=== PATIENT | male | born 1950 | race Caucasian/White ===

== ENCOUNTER 2016-11-08 15:04 | Emergency (ER) | payer OTHER ==
[2016-11-08 15:26] LABS: BASOPHILS 0.2 % (0.0-2.0); EOSINOPHILS 0.9 % (0-7); HEMATOCRIT 43.3 % (42.0-54.0); HEMOGLOBIN 15.3 g/dL (13.5-17.5); IMMATURE GRANULOCYTES 0.2 % (0-5); LYMPHOCYTES 14.7 % (15-50); MCH 32.4 pg (26.0-34.0); MCHC 35.3 g/dL (31.0-37.0); MCV 91.7 fL (80.0-100.0); MONOCYTES 6.2 % (2-11); NEUTROPHILS 77.8 % (40-80); PLATELET COUNT 165 10x3/uL (130-400); RBC 4.72 10x6/uL (4.20-6.10); RDW 12.1 % (11.5-14.5); WBC 9.8 10x3/uL (4.8-10.8)
[2016-11-08 15:39] LABS: APTT 26.2 SECONDS (22.8-39.4); INR 1.05 (0.85-1.17); PROTIME 13.6 SECONDS (11.6-15.0)
[2016-11-08 15:47] LABS: ALBUMIN 3.9 g/dL (3.4-5.0); ALKALINE PHOSPHATASE 78 U/L (46-116); ALT (SGPT) 22 U/L (10-68); AMYLASE - SERUM 55 U/L (25-115); BILIRUBIN - TOTAL 1.02 mg/dL (0.2-1.3); CALC OSMOLALITY 278 mosm/kg (275-300); CALCIUM 9.4 mg/dL (8.5-10.1); CARBON DIOXIDE 28.9 mmol/L (21.0-32.0); CHLORIDE - SERUM 103 mmol/L (98-107); GLUCOSE 108 mg/dL (74-106); LIPASE 148 U/L (73-393); POTASSIUM - SERUM 3.7 mmol/L (3.5-5.1); PROTEIN - SERUM 7.5 g/dL (6.4-8.2); SODIUM 140 mmol/L (136-145); UREA NITROGEN 9 mg/dL (7-18); eGFR NON AFRICAN AMERICAN 79 mL/min (90-120)
== END 2016-11-08 21:01 | disposition home or self-care (01) ==
LOC: D.ER 15:04
PROVIDERS: Emergency Medicine
DX: K52.89 Other specified noninfective gastroenteritis and colitis (principal); J44.9 Chronic obstructive pulmonary disease, unspecified; I24.9 Acute ischemic heart disease, unspecified; J45.909 Unspecified asthma, uncomplicated; E78.5 Hyperlipidemia, unspecified; I21.4 Non-ST elevation (NSTEMI) myocardial infarction; M06.9 Rheumatoid arthritis, unspecified; F17.200 Nicotine dependence, unspecified, uncomplicated

== ENCOUNTER 2017-06-07 13:33 | Emergency (ER) | payer OTHER | END 2017-06-07 18:28 | disposition left against medical advice (07) | LOC: D.ER 13:33 | DX: H57.12 Ocular pain, left eye (principal) ==

== ENCOUNTER 2017-07-03 02:39 | Emergency (ER) | payer OTHER | END 2017-07-03 03:48 | disposition home or self-care (01) | LOC: D.ER 02:39 | DX: M54.32 Sciatica, left side (principal); J45.909 Unspecified asthma, uncomplicated ==

== ENCOUNTER 2017-07-08 12:47 | Emergency (ER) | payer OTHER | END 2017-07-08 15:22 | disposition home or self-care (01) | LOC: D.ER 12:47 | DX: M54.30 Sciatica, unspecified side (principal); S39.012A Strain of muscle, fascia and tendon of lower back, initial encounter; X58.XXXA Exposure to other specified factors, initial encounter; Y93.89 Activity, other specified; Y92.019 Unspecified place in single-family (private) house as the place of occurrence of the external cause; J45.909 Unspecified asthma, uncomplicated ==

== ENCOUNTER 2017-07-17 14:36 | Emergency (ER) | payer OTHER ==
[2017-07-17 14:59] LABS: BASOPHILS 0.3 % (0-2); EOSINOPHILS 0.5 % (0-7); HEMATOCRIT 43.5 % (42.0-54.0); HEMOGLOBIN 15.2 g/dL (13.5-17.5); IMMATURE GRANULOCYTES 0.1 % (0-5); LYMPHOCYTES 14.5 % (15-50); MCH 31.4 pg (26.0-34.0); MCHC 34.9 g/dL (31.0-37.0); MCV 89.9 fL (80.0-100.0); MEAN PLATELET VOLUME 10.2 fL (7.4-10.4); MONOCYTES 5.9 % (2-11); NEUTROPHILS 78.7 % (40-80); PLATELET COUNT 148 10x3/uL (130-400); RBC 4.84 10x6/uL (4.20-6.10); RDW 12.7 % (11.5-14.5); WBC 7.8 10x3/uL (4.8-10.8)
[2017-07-17 15:23] LABS: ALBUMIN 3.8 g/dL (3.4-5.0); ALKALINE PHOSPHATASE 96 U/L (46-116); ALT (SGPT) 24 U/L (10-68); CALC OSMOLALITY 281 mosm/kg (275-300); CALCIUM 9.8 mg/dL (8.5-10.1); CARBON DIOXIDE 25.9 mmol/L (21.0-32.0); CHLORIDE - SERUM 102 mmol/L (98-107); CHOL - HDL RATIO 2.8 ratio (2.3-4.9); CHOLESTEROL, TOTAL 144 mg/dL (0-200); CKMB 0.6 U/L (0.0-3.6); CREATINE KINASE 83 UL (21-232); GLUCOSE 130 mg/dL (74-106); HDL CHOLESTEROL 52 mg/dL (32-96); LDL CHOLESTEROL 47 mg/dL (0-100); LDL-HDL RATIO 0.9 ratio (1.5-3.5); POTASSIUM - SERUM 3.4 mmol/L (3.5-5.1); PROTEIN - SERUM 7.5 g/dL (6.4-8.2); SODIUM 140 mmol/L (136-145); TRIGLYCERIDE 227 mg/dL (30-200); UREA NITROGEN 15 mg/dL (7-18)
[2017-07-17 15:26] LABS: BILIRUBIN - TOTAL 0.04 mg/dL (0.2-1.3); TROPONIN-I < 0.017 ng/mL (0.000-0.060)
[2017-07-17 15:36] LABS: MAGNESIUM - SERUM 1.8 mg/dL (1.8-2.4)
[2017-07-17 15:59] LABS: eGFR NON AFRICAN AMERICAN 79 mL/min (90-120)
== END 2017-07-17 17:53 | disposition home or self-care (01) ==
LOC: D.ER 14:36
PROVIDERS: Emergency Medicine
DX: R07.9 Chest pain, unspecified (principal); I25.10 Atherosclerotic heart disease of native coronary artery without angina pectoris; E87.6 Hypokalemia; F17.200 Nicotine dependence, unspecified, uncomplicated

== ENCOUNTER 2018-04-25 22:35 | Inpatient (IN) | payer MEDICARE, MEDICAID ==
[~2018-04-25] VITALS: Ht 177.8 cm; Wt 86.4 kg
--- NOTE | ~2018-04-25 | OP ---
PATIENT NAME: RAJWINDER BROOKE MEDICAL RECORD: [id number] :48 LOCATION:D.MS [id number] ADMISSION DATE:04/26/18 SURGEON: CHERIE MARQUEZ MD DATE OF OPERATION: 04/27/2018 PREOPERATIVE DIAGNOSIS: Left intertrochanteric hip fracture. POSTOPERATIVE DIAGNOSIS: Left intertrochanteric hip fracture. PROCEDURE: Gamma nailing for left intertrochanteric hip fracture. SURGEON: Cherie Marquez MD ANESTHESIA: General. INTRAOPERATIVE COMPLICATIONS: None. SUMMARY OF PATHOLOGIC FINDINGS: The patient had an intertrochanteric fracture at the base of the femoral neck on the left consistent with preoperative diagnosis. IMPLANTS USED: WorkingPoint gamma nail system short 125 nail with a 105-mm compression screw and a 35-mm interlocking screw. OPERATIVE SUMMARY IN DETAIL: After obtaining the appropriate preoperative orthopedic surgery consent as well as anesthetic consultation, evaluation and clearance, the patient was brought to the operating room, placed on the operating table in supine position. After adequate general laryngeal mask airway was administered, the patient was placed on the fracture table, right leg was placed in the well leg munson and the left leg was placed in the traction boot. All pressure points were well padded. The patient was held firmly to the fracture table using the belt and strap system. Appropriate reduction maneuvers were performed and then under fluoroscopy, fluoroscopy showed good reduction in both AP and lateral planes. Left hip was prepped and draped in routine sterile fashion. A small incision was made above the tip of the greater trochanter. An awl was used to create a passing hole for the lateral tip of the greater trochanter. A ball-tipped guidewire was then passed on the femur. Proximal reaming was then followed by insertion of the short 125 degree nail to the appropriate depth. The guide pin was placed in the center of the femoral head as seen on AP and lateral planes to the appropriate depth. Reaming was then followed by insertion of the compression screw, which was then compressed and the derotational screw was placed and back turned approximately 2-1/2 times to allow for compression, but not rotation. Lastly, the distal interlocking screw was placed using the guide under fluoroscopic guidance. Final radiographs were taken and submitted for radiologist review. Wounds were irrigated and closed in usual fashion. Sterile dressings were applied. The patient was awakened, taken to recovery room in stable condition. All final needle and sponge counts were correct. TRANSINT:[id number] Voice Confirmation ID: [id number] DOCUMENT ID: [id number] OPERATIVE REPORT [id number] RAJWINDER BROOKE MD, CHERIE NUNEZ at 1150 CC: [id number] DICTATION DATE: 04/27/18 1548 MANAGER BUDGET: 04/27/18 1616 ADM IN [place] [address] [place] [address]
[2018-04-25] MEDS ORDERED: OMEPRAZOLE40 MG PO (22:38)
[2018-04-25] MEDS ORDERED: LISINOPRIL5 MG PO (22:38)
[2018-04-25] MEDS ORDERED: BAYER CHEWABLE81 MG PO (22:38)
[2018-04-25] MEDS ORDERED: LOPRESSOR25 MG PO (22:38)
[2018-04-25] MEDS ORDERED: VITAMIN B-12500 MC1 PO (22:39)
[2018-04-25] MEDS ORDERED: RESTORIL15 MG PO (22:39)
[2018-04-26] VITALS (17 sets, daily range): BP systolic 94–149; BP diastolic 67–91
[2018-04-26 01:01] LABS: BASOPHILS 0.3 % (0-2); EOSINOPHILS 0.5 % (0-7); HEMATOCRIT 40.6 % (42.0-54.0); HEMOGLOBIN 14.1 g/dL (13.5-17.5); IMMATURE GRANULOCYTES 0.8 % (0-5); MCH 31.3 pg (26.0-34.0); MCHC 34.7 g/dL (31.0-37.0); MCV 90.2 fL (80.0-100.0); MEAN PLATELET VOLUME 9.9 fL (7.4-10.4); MONOCYTES 7.5 % (2-11); NEUTROPHILS 81.9 % (40-80); RDW 12.7 % (11.5-14.5); WBC 10.9 10x3/uL (4.8-10.8)
[2018-04-26 01:02] LABS: PLATELET COUNT 182 10x3/uL (130-400)
[2018-04-26 01:07] LABS: INR 1.04 (0.85-1.17); PROTIME 13.2 SECONDS (11.6-15.0)
[2018-04-26 01:11] LABS: ALBUMIN 3.7 g/dL (3.4-5.0); ANION GAP 12.1 mmol/L (8-16); BILIRUBIN - TOTAL 0.33 mg/dL (0.2-1.3); CARBON DIOXIDE 28.9 mmol/L (21.0-32.0); CREATININE - SERUM 1.3 mg/dL (0.6-1.3); PROTEIN - SERUM 7.2 g/dL (6.4-8.2)
[2018-04-26 08:26] LABS: CKMB 1.1 U/L (0.0-3.6)
[2018-04-26] MEDS ORDERED: METOPROLOL TART25 MG PO (19:16)
[2018-04-27 01:28] VITALS: BP 94/67; BMI 27.3
[2018-04-27 04:26] VITALS: BP 98/68
[2018-04-27 06:29] LABS: BASOPHILS 0.5 % (0-2); EOSINOPHILS 3.1 % (0-7); HEMATOCRIT 41.7 % (42.0-54.0); HEMOGLOBIN 14.1 g/dL (13.5-17.5); IMMATURE GRANULOCYTES 0.8 % (0-5); LYMPHOCYTES 13.4 % (15-50); MCH 31.2 pg (26.0-34.0); MCHC 33.8 g/dL (31.0-37.0); MEAN PLATELET VOLUME 10.3 fL (7.4-10.4); MONOCYTES 11.6 % (2-11); NEUTROPHILS 70.6 % (40-80); PLATELET COUNT 151 10x3/uL (130-400); RBC 4.52 10x6/uL (4.20-6.10); RDW 12.8 % (11.5-14.5); WBC 9.7 10x3/uL (4.8-10.8)
[2018-04-27 06:38] LABS: MCV 92.3 fL (80.0-100.0)
[2018-04-27 07:05] LABS: ALBUMIN 3.4 g/dL (3.4-5.0); ANION GAP 12.8 mmol/L (8-16); BILIRUBIN - TOTAL 1.21 mg/dL (0.2-1.3); CALCIUM 8.5 mg/dL (8.5-10.1); CARBON DIOXIDE 24.2 mmol/L (21.0-32.0); CREATININE - SERUM 1.3 mg/dL (0.6-1.3); PROTEIN - SERUM 6.9 g/dL (6.4-8.2)
[2018-04-27 08:39] VITALS: BP 117/76
[2018-04-27 09:42] VITALS: Ht 177.8 cm; Wt 86.4 kg
[2018-04-27 12:24] VITALS: BP 133/75
[2018-04-27 17:22] VITALS: BP 145/91
[2018-04-27 20:26] VITALS: BP 145/99
[2018-04-28] VITALS (7 sets, daily range): BP systolic 118–146; BP diastolic 68–92
[2018-04-28 00:09] LABS: APPEARANCE CLEAR (CLEAR); BILIRUBIN NEGATIVE (NEGATIVE); COLOR YELLOW (YELLOW); GLUCOSE 50 mg/dL (NEGATIVE); KETONE NEGATIVE (NEGATIVE); NITRITE NEGATIVE (NEGATIVE); PROTEIN NEGATIVE (NEGATIVE); UROBILINOGEN NORMAL (NORMAL)
[2018-04-28 00:15] LABS: BACTERIA MODERATE /hpf (NONE SEEN); EPITHELIAL CELLS RARE /hpf (0-5); RED CELLS - URINE OCC /hpf (0-5); WHITE CELLS - URINE RARE /hpf (0-5)
[2018-04-28 05:32] LABS: BASOPHILS 0.1 % (0-2); EOSINOPHILS 0 % (0-7); HEMATOCRIT 36.5 % (42.0-54.0); HEMOGLOBIN 12.7 g/dL (13.5-17.5); IMMATURE GRANULOCYTES 0.5 % (0-5); LYMPHOCYTES 4.6 % (15-50); MCH 31.4 pg (26.0-34.0); MCHC 34.8 g/dL (31.0-37.0); MEAN PLATELET VOLUME 10.3 fL (7.4-10.4); MONOCYTES 8.2 % (2-11); NEUTROPHILS 86.6 % (40-80); PLATELET COUNT 143 10x3/uL (130-400); RBC 4.05 10x6/uL (4.20-6.10); RDW 12.3 % (11.5-14.5); WBC 11.3 10x3/uL (4.8-10.8)
[2018-04-28 06:04] LABS: MCV 90.1 fL (80.0-100.0)
[2018-04-28 06:15] LABS: ALBUMIN 2.9 g/dL (3.4-5.0); ANION GAP 14.1 mmol/L (8-16); BILIRUBIN - TOTAL 0.75 mg/dL (0.2-1.3); CALCIUM 8.2 mg/dL (8.5-10.1); CARBON DIOXIDE 24.9 mmol/L (21.0-32.0); CREATININE - SERUM 1.3 mg/dL (0.6-1.3); PROTEIN - SERUM 6.6 g/dL (6.4-8.2)
[2018-04-29 03:43] VITALS: BP 114/70
[2018-04-29 05:21] LABS: BASOPHILS 0.5 % (0-2); EOSINOPHILS 3.4 % (0-7); HEMATOCRIT 34.4 % (42.0-54.0); HEMOGLOBIN 11.8 g/dL (13.5-17.5); IMMATURE GRANULOCYTES 0.7 % (0-5); MCH 31.3 pg (26.0-34.0); MCHC 34.3 g/dL (31.0-37.0); MCV 91.2 fL (80.0-100.0); MEAN PLATELET VOLUME 10.3 fL (7.4-10.4); MONOCYTES 10.5 % (2-11); NEUTROPHILS 66.9 % (40-80); PLATELET COUNT 142 10x3/uL (130-400); RBC 3.77 10x6/uL (4.20-6.10); RDW 12.5 % (11.5-14.5)
[2018-04-29 06:20] LABS: ALBUMIN 2.9 g/dL (3.4-5.0); ANION GAP 10.1 mmol/L (8-16); BILIRUBIN - TOTAL 0.54 mg/dL (0.2-1.3); CARBON DIOXIDE 26.2 mmol/L (21.0-32.0); CREATININE - SERUM 1.1 mg/dL (0.6-1.3); PROTEIN - SERUM 6.2 g/dL (6.4-8.2)
[2018-04-29 06:23] LABS: POTASSIUM - SERUM 3.3 mmol/L (3.5-5.1)
[2018-04-29 08:13] VITALS: BP 135/72
[2018-04-29] MEDS ORDERED: HYDROCODONE-APA1 TAB PO (10:20)
[2018-04-29] MEDS ORDERED: PERCOCET 10/3251 TA1 PO (10:22)
[2018-04-29 12:33] VITALS: BP 137/84
== END 2018-04-29 15:44 | disposition home or self-care (01) | DRG 482 ==
LOC: D.ER 22:35 → D.EDHOLD 04-26 00:33 → D.MS 04-26 00:33
PROVIDERS: Emergency Medicine; Family Medicine; Orthopaedic Surgery
PROC: 0QS736Z Reposition Left Upper Femur with Intramedullary Internal Fixation Device, Percutaneous Approach (ICD-10-PCS; principal; 2018-04-27 13:45)
DX: S72.142A Displaced intertrochanteric fracture of left femur, initial encounter for closed fracture (principal); W06.XXXA Fall from bed, initial encounter; J44.9 Chronic obstructive pulmonary disease, unspecified; E78.5 Hyperlipidemia, unspecified; I25.9 Chronic ischemic heart disease, unspecified; Z87.891 Personal history of nicotine dependence; S59.902A Unspecified injury of left elbow, initial encounter; S39.93XA Unspecified injury of pelvis, initial encounter

== ENCOUNTER 2018-04-30 12:34 | Emergency (ER) | payer MEDICARE, MEDICAID ==
[~2018-04-30] VITALS: Ht 177.8 cm; Wt 68.2 kg
[~2018-04-30 12:34] MED LIST: BAYER CHEWABLE81 MG PO; HYDROCODONE-APA1 TAB PO; LISINOPRIL5 MG PO; LOPRESSOR25 MG PO; METOPROLOL TART25 MG PO; OMEPRAZOLE40 MG PO; PERCOCET 10/3251 TA1 PO; RESTORIL15 MG PO; VITAMIN B-12500 MC1 PO
[2018-04-30 12:43] VITALS: Ht 177.8 cm; Wt 68.2 kg
[2018-04-30 13:13] LABS: BASOPHILS 0.7 % (0-2); EOSINOPHILS 3.7 % (0-7); HEMATOCRIT 34.6 % (42.0-54.0); HEMOGLOBIN 11.9 g/dL (13.5-17.5); IMMATURE GRANULOCYTES 0.9 % (0-5); LYMPHOCYTES 9.9 % (15-50); MCH 31.1 pg (26.0-34.0); MCHC 34.4 g/dL (31.0-37.0); MCV 90.3 fL (80.0-100.0); MEAN PLATELET VOLUME 9.9 fL (7.4-10.4); MONOCYTES 12.6 % (2-11); NEUTROPHILS 72.2 % (40-80); PLATELET COUNT 166 10x3/uL (130-400); RBC 3.83 10x6/uL (4.20-6.10); RDW 12.7 % (11.5-14.5); WBC 9.4 10x3/uL (4.8-10.8)
[2018-04-30 13:26] LABS: ALBUMIN 3.2 g/dL (3.4-5.0); ANION GAP 13.3 mmol/L (8-16); BILIRUBIN - TOTAL 0.97 mg/dL (0.2-1.3); CALCIUM 8.6 mg/dL (8.5-10.1); CARBON DIOXIDE 23.2 mmol/L (21.0-32.0); CREATININE - SERUM 1.2 mg/dL (0.6-1.3); POTASSIUM - SERUM 3.5 mmol/L (3.5-5.1); PROTEIN - SERUM 6.8 g/dL (6.4-8.2)
[2018-04-30 14:12] LABS: APPEARANCE CLEAR (CLEAR); BILIRUBIN NEGATIVE (NEGATIVE); COLOR YELLOW (YELLOW); GLUCOSE NEGATIVE (NEGATIVE); KETONE NEGATIVE (NEGATIVE); NITRITE NEGATIVE (NEGATIVE); PROTEIN NEGATIVE (NEGATIVE); SPECIFIC GRAVITY 1.005 (1.005-1.020); UROBILINOGEN NORMAL (NORMAL)
[2018-04-30 16:03] VITALS: BP 123/78
== END 2018-04-30 16:04 | disposition home or self-care (01) ==
LOC: D.ER 12:34
PROVIDERS: Family Medicine
DX: B34.9 Viral infection, unspecified (principal); I10 Essential (primary) hypertension; J44.9 Chronic obstructive pulmonary disease, unspecified

== ENCOUNTER 2018-08-18 07:39 | Outpatient (CLI) | payer MEDICARE, MEDICAID ==
[~2018-08-18] VITALS: Ht 177.8 cm; Wt 84.1 kg
--- NOTE | ~2018-08-18 | OP ---
PATIENT NAME: RAJWINDER BROOKE MEDICAL RECORD: [id number] :48 LOCATION:D.CAT ADMISSION DATE: SURGEON: KUSHAL SCRUGGS MD DATE OF OPERATION: 08/18/2018 PROCEDURES: 1. PTCA stent left circumflex. 2. PTCA stent LAD. 3. Intravascular ultrasound of left circumflex. 4. Left heart catheterization. 5. Selective coronary angiography. 6. Left ventriculogram. INDICATION: Angina and coronary artery disease. PROCEDURE IN DETAIL: After informed consent was obtained and after a detailed description of risks, benefits as well as alternative therapies, the patient elected to proceed with angiogram and angioplasty. The right radial area was prepped and draped in normal sterile fashion. Right radial artery was cannulated via modified Seldinger technique with placement of 6-Greenlandic sheath. All catheters exchanged through this sheath. FINDINGS: Left ventriculogram was performed in standard 30-degree ROCHE view, reveals good cardiac wall motions throughout at segments. Overall ejection fraction is estimated at 60%. SELECTIVE CORONARY ANGIOGRAPHY: 1. Left main showed no significant angiographic disease. 2. Left anterior descending as 85+ percent stenosis in the mid vessel. 3. Left circumflex has 70% stenosis in the mid vessel confirmed by intravascular ultrasound. 4. The right coronary has mild irregularities, but no flow-limiting stenosis. PTCA STENT OF THE LAD AND CIRCUMFLEX: The LAD was addressed with a 2.5 x 12 mm Jer stent, the circumflex with a 3.5 x 18 mm Integrity stent. Result was 0% residual stenosis. OVERALL IMPRESSION: Successful percutaneous transluminal coronary angioplasty stent of the left anterior descending and circumflex going from 70-85% initial stenosis to 0% residual. TRANSINT:[id number] Voice Confirmation ID: [id number] DOCUMENT ID: [id number] KUSHAL SCRUGGS MD at 1059 CC: [id number] DICTATION DATE: 08/18/18 1107 SMALL EQUIPMENT OPERATOR: 08/18/18 1116 [facility] CLI 08/18/18 [place] [id number]
--- NOTE | ~2018-08-18 | HEMODYNAMI ---
PATIENT:RAJWINDER BROOKE MEDICAL RECORD: [id number] : 48 LOCATION:LAYO ADMISSION DATE: 08/18/18 Generatedon:08/18/201811:09 Patient name: RAJWINDER BROOKE Patient #: [id number] SSN: : 1950 Date of study: 08/18/2018 Page: Of Hemodynamic Procedure Report Patient Data Patient Demographics Procedure consent was obtained First Name: RAJWINDER Gender: Male Last Name: EDWARDO : 1950 [facility] Initial: SABAS Age: 68 year(s) Patient #: [id number] Race: Additional ID: [id number] Contact details Address: [address] [place] [address] [address] State: [place] City: [facility] Zip code: [address] Admission Admission Data Admission Date: 08/18/2018 Admission Time: 7:39 Procedure Procedure Types Cath Procedure Diagnostic Procedure LHC LHC w/Coronaries FFR/IVUS Intra-Coronary IVUS Initial PCI Procedure Coronary Stent Coronary Stent Initial x2 Procedure Description Procedure Date Procedure Date: 08/18/2018 Procedure Start Time: 10:47 Procedure End Time: 11:09 Procedure Staff Name Function Carlos Chaudhari MD Performing Physician Renny Reed RT Monitor Miguel Boo RN Nurse Arleen Woodson RT Scrub Procedure Data Cath Procedure Fluoroscopy Diagnostic fluoroscopy Total fluoroscopy Time: 6.5 time: 6.5 min min Diagnostic fluoroscopy Total fluoroscopy dose: dose: 1037 mGy 1037 mGy Contrast Material Contrast Material Type Amount (ml) Isovue 300 99 Entry Location Entry Primary Successful Side Size Upsize Upsize Entry Closure Goode ccessful Closure Location (Fr) 1 (Fr) 2 (Fr) Remarks Device Remarks Radial Right 6 Fr Mechanical artery Short Compression Estimated blood loss: 20 ml Diagnostic catheters Device Type Used For End Catheter Placement DIAGNOSTIC Sawyer 110cm 5 Procedure Fr catheter (847209) Procedure Medications Medication Administration Route Dosage 0.9% NaCl I.V. 100 ml/hr Oxygen etCO2 Nasal cannula 2 l/min Heparin Flush Bag added to field 2 bags (1000units/500ml NS) Lidocaine 2% added to field 20 Radial Cocktail added to field 1 syringe (Verapomil 2mg/Nitro 400mcg/Heparin 1500units) Versed I.V. 2 mg Fentanyl I.V. 100 mcg Versed I.V. 2 mg Fentanyl I.V. 100 mcg Versed I.V. 1 mg Fentanyl I.V. 50 mcg Radial Cocktail I.A. 1 syringe (Verapomil 2mg/Nitro 400mcg/Heparin 1500units) Heparin Bolus I.V. 4000 units Integrilin (Bolus I.V. 7.3 ml 2mg/ml) Integrilin (Bolus wasted 2.7 ml 2mg/ml) Plavix P.O. 600 mg Hemodynamics Rest Heart Rate: 66 (bpm) Pressure Samples Time Site Value (mmHg) Purpose Heart Use Rate(bpm) 10:49 LV 84/9,12 Snapshot 96 10:53 LV 95/18,16 Snapshot 75 Snapshots Pre Cath Intra NCS Post Cath Vital Signs Time Heart Resp SPO2 etCO2 NIBP (mmHg) Rhythm Pain Sedation Rate (ipm) (%) (mmHg) Status Level (bpm) 10:09:22 63 17 98 0 136/85(118) NSR 0 (11) 10(A) , No pain 10:13:30 75 23 100 32.2 136/87(106) NSR 0 (11) 10(A) , No pain 10:17:38 74 15 98 30.7 123/88(105) NSR 0 (11) 10(A) , No pain 10:21:40 80 21 97 32.2 129/92(112) NSR 0 (11) 10(A) , No pain 10:25:45 72 16 97 31.5 121/85(101) NSR 0 (11) 10(A) , No pain 10:30:28 77 13 98 17.2 142/92(116) NSR 0 (11) 10(A) , No pain 10:34:36 68 18 99 27.7 129/92(116) NSR 0 (11) 10(A) , No pain 10:38:42 69 15 98 24.7 129/83(106) NSR 0 (11) 10(A) , No pain 10:42:46 71 17 99 16.5 127/94(112) NSR 0 (11) 10(A) , No pain 10:46:56 72 13 77 19.4 135/72(119) NSR 0 (11) 10(A) , No pain 10:51:01 79 16 90 0 96/69(89) NSR 0 (11) 9(A) , No pain 10:54:57 82 17 82 23.9 104/78(88) NSR 0 (11) 9(A) , No pain 10:58:56 76 16 95 32.9 110/71(81) NSR 0 (11) 9(A) , No pain 11:03:00 73 17 95 35.2 100/73(80) NSR 0 (11) 10(A) , No pain 11:07:59 73 12 29.9 Measuring NSR 0 (11) 9(A) , No pain 11:08:15 77 12 26.9 Disturbed NSR 0 (11) 9(A) , No pain Medications Time Medication Route Dose Verified Delivered Reason Not es Effectiveness by by 10:11:33 0.9% NaCl I.V. 100 Miguel Miguel Per physician ml/hr Rajeev Boo RN RN 10:11:46 Oxygen etCO2 2 l/min Miguel Miguel Per physician Nasal Rajeev Boo cannula RN RN 10:11:58 Heparin Flush added 2 bags Miguel Miguel used for Bag to Lorigan Raejev procedure (1000units/500ml field MILLER RN NS) 10:12:08 Lidocaine 2% added 20ml Miguel Miguel for local to vial Lorigan Lorigan anesthetic field MILLER RN 10:12:17 Radial Cocktail added 1 Miguel Miguel used for (Verapomil to syringe Lorigan Lorigan procedure 2mg/Nitro field MILLER RN 400mcg/Heparin 1500units) 10:41:43 Versed I.V. 2 mg Miguel Miguel for sedation Rajeev Boo RN RN 10:41:51 Fentanyl I.V. 100 mcg Miguel Miguel for sedation Rajeev Boo RN RN 10:43:39 Versed I.V. 2 mg Miguel Miguel for sedation Rajeev Boo RN RN 10:43:43 Fentanyl I.V. 100 mcg Miguel Miguel for sedation Rajeev Boo RN RN 10:48:32 Versed I.V. 1 mg Miguel Miguel for sedation Rajeev Boo RN RN 10:48:37 Fentanyl I.V. 50 mcg Miguel Miguel for sedation Rajeev Boo RN RN 10:48:50 Radial Cocktail I.A. 1 Miguel Carlos for (Verapomil syringe Rajeev Chaudhari MD vasodilation 2mg/Nitro RN 400mcg/Heparin 1500units) 10:54:18 Heparin Bolus I.V. 4000 Miguel Miguel for units Rajeev Boo anticoagulation RN RN 10:54:34 Integrilin I.V. 7.3 ml Miguel Miguel for (Bolus 2mg/ml) Rajeev Boo antiplatelet RN RN therapy 10:55:00 Integrilin wasted 2.7 ml Miguel Miguel to sharp's (Bolus 2mg/ml) Rajeev Boo RN, RN 11:04:39 Plavix P.O. 600 mg Miguel Miguel for Rajeev Boo antiplatelet RN RN therapy Procedure Log Time Note 9:55:44 Miguel Boo RN sent for patient. Start room use. 10:01:09 Informed consent obtained and on chart 10:01:13 Diagnostic Cath Status : Elective 10:03:29 Time tracking: Regular hours (M-F 7:00 - 5:00) 10:03:35 Plan of Care:Hemodynamics will remain stable., Cardiac rhythm will remain stable., Comfort level will be maintained., Respiratory function will remain adequate., Patient/ family verbilizes understanding of procedure., Procedure tolerated without complication., Recovers from procedure without complications.. 10:08:13 Vital chart was started 10:08:28 Patient received from Pre/Post Procedure Room to CCL 2 Alert and oriented. Tansferred to table in Supine position. 10:08:32 Warm blankets applied, and jessie hugger turned on for patient comfort. 10:08:32 Correct patient and procedure confirmed by team. 10:08:33 ECG and BP/O2 sat monitors applied to patient. 10:08:35 Baseline sample Acquired. 10:08:41 Full Disclosure recording started 10:08:44 H&P Date Dictated: 08/18/2018 Within 30 days and on chart., H&P Addendum completed by physician on day of procedure. (MUST COMPLETE FOR ALL OUTPATIENTS). 10:08:45 Pre-procedure instructions explained to patient. 10:08:46 Pre-op teaching completed and patient verbalized understanding. 10:08:48 Family in waiting room. 10:08:50 Patient NPO since Midnight. 10:08:52 Is the patient allergic to Iodine/contrast media? No. 10:08:53 Was the patient premedicated? No 10:08:54 Is patient on blood thinner?No 10:09:03 Patient diabetic? No. 10:09:05 Previous problem with sedation/anesthesia? No ? 10:09:06 Snore? Yes 10:09:07 Sleep apnea? No 10:09:09 Deviated septum? No 10:09:10 Opens mouth fully? Yes 10:09:11 Sticks out tongue? Yes 10:09:12 Airway obstruction? No ? 10:09:15 Dentures? No ? 10:09:20 Pre procedure: right posterior tibial pulse 2+ Normal; easily identifiable; not easily obliterated 10:09:22 Patient pain scale 0/10 ?. 10:09:26 IV patent on arrival in left forearm with 0.9% NaCl at [facility]. 10:09:29 Lab results completed and on chart. 10:09:33 Right Radial & Right Groin area was prepped with chlora-prep and draped in sterile fashion 10:09:35 Alarms reviewed by R. N. 10:09:35 Sharps counted by scrub and verified by R.N. 10:11:33 0.9% NaCl 100 ml/hr I.V. was administered by Miguel Boo RN; Per physician; 10:11:46 Oxygen 2 l/min etCO2 Nasal cannula was administered by Miguel Boo RN; Per physician; 10::58 Heparin Flush Bag (1000units/500ml NS) 2 bags added to field was administered by Miguel Boo RN; used for procedure; 10:12:08 Lidocaine 2% 20ml vial added to field was administered by Miguel Boo RN; for local anesthetic; 10:12:17 Radial Cocktail (Verapomil 2mg/Nitro 400mcg/Heparin 1500units) 1 syringe added to field was administered by Miguel Boo RN; used for procedure; 10:23:00 Zero performed for pressure channel P1 10:38:57 Physician arrived 10:38:58 --------ALL STOP TIME OUT------ 10:38:58 Final Timeout: patient, procedure, and site verified with staff and physician. All members of the team are in agreement. 10:39:01 Right Radial & Right Groin site verified by team. 10:39:05 Physical assessment completed. ASA score P 2 - A patient with mild systemic disease as per Carlos Chaudhari MD. 10:39:10 Sedation plan: IV Moderate Sedation Medication:Versed, Fentanyl 10:39:21 Use device set Radial Dx or PCI 10:39:23 ACIST Syringe (83803) opened to sterile field. 10:39:24 Medline Cath Pack ([id number]) opened to sterile field. 10:39:24 Bag Decanter (2002S) opened to sterile field. 10:39:25 DIAGNOSTIC WIRE .035 260cm J wire (709472) opened to sterile field. 10:39:26 ACIST Hand Control (00169) opened to sterile field. 10:39:27 ACIST Manifold (36354) opened to sterile field. 10:39:28 Tegaderm 4 x 4 (1626W) opened to sterile field. 10:39:29 MBrace Wrist Support (022749172) opened to sterile field. 10:39:32 TR BAND Standard (WTB72ESE) opened to sterile field. 10:39:35 SHEATH 6Fr Prelude Radial ([id number]) opened to sterile field. 10:41:43 Versed 2 mg I.V. was administered by Miguel Boo RN; for sedation; 10:41:51 Fentanyl 100 mcg I.V. was administered by Miguel Boo RN; for sedation; 10:43:39 Versed 2 mg I.V. was administered by Miguel Boo RN; for sedation; 10:43:43 Fentanyl 100 mcg I.V. was administered by Miguel Boo RN; for sedation; 10:47:17 Procedure started. 10:47:22 Local anesthetic to right radial artery with Lidocaine 2% by Carlos Chaudhari MD.INITIAL ACCESS ONLY 10:47:47 A 6 Fr Short sheath was inserted into the Right Radial artery 10:48:04 A DIAGNOSTIC Sawyer 110cm 5 Fr catheter (214275) was advanced over the wire and used for Procedure. 10:48:32 Versed 1 mg I.V. was administered by Miguel Boo RN; for sedation; 10:48:37 Fentanyl 50 mcg I.V. was administered by Miguel Boo RN; for sedation; 10:48:50 Radial Cocktail (Verapomil 2mg/Nitro 400mcg/Heparin 1500units) 1 syringe I.A. was administered by Carlos Chaudhari MD; for vasodilation; 10:49:38 LV gram done using ROCHE 10:49:39 LV hemodynamics recorded. 10:49:44 EF : 60 % 10:50:13 LCA angiography performed. 10:50:45 [place] IVUS Catheter (11436G) opened to sterile field. 10:50:45 CHOICE PT Extra Support 182cm wire ([id number]) opened to sterile field. 10:50:46 INFLATOR Merit BasixCompak (DI6559) opened to sterile field. 10:50:56 RCA angiography performed. 10:51:01 Catheter removed. 10:51:02 Proceeding to intervention. 10:51:16 GUIDE 6FR XBLAD 3.5 catheter ([id number]) opened to sterile field. 10:52:31 6 Fr XBLAD 3.5 guide catheter was inserted over the wire 10:54:18 Heparin Bolus 4000 units I.V. was administered by Miguel Boo RN; for anticoagulation; 10:54:26 CHOICE wire advanced. 10:54:34 Integrilin (Bolus 2mg/ml) 7.3 ml I.V. was administered by Miguel Boo RN; for antiplatelet therapy; 10:54:35 CIRCUMFLEX 10:54:44 FFR/IVUS 10:55:00 Integrilin (Bolus 2mg/ml) 2.7 ml wasted was administered by Miguel Boo RN; to sharp's; 10:57:20 IVUS catheter advanced over wire. 10:57:23 IVUS pass to Circ lesion performed. 10:57:25 IVUS catheter removed over wire. 10:57:33 69.5% 10:58:07 Wire redirected to LAD. 10:58:49 Procedure type changed to Cath procedure, Diagnostic procedure, LHC, LHC w/Coronaries, FFR/IVUS, Intra-Coronary IVUS Initial, PCI procedure, Coronary Stent, Coronary Stent Initial x2 10:59:54 Place stent Inflation Number: 1 A DRAKE RX 2.5 x 12 stent ([id number]) was prepped and advanced across the Mid LAD. The stent was deployed at 13 BULL for 0:10 (min:sec). 11:00:39 Wire redirected to ?. 11:00:42 Stent catheter was removed intact over wire. 11:00:49 Wire redirected to CIRC. 11:03:10 Place stent Inflation Number: 1 A INTEGRITY RX 3.5 x 18 stent ([id number]) was prepped and advanced across the Undefined1. The stent was deployed at 13 BULL for 0:10 (min:sec). 11:04:36 Stent catheter was removed intact over wire. 11:04:37 Wire removed. 11:04:38 Guide catheter removed. 11:04:39 Plavix 600 mg P.O. was administered by Miguel Boo RN; for antiplatelet therapy; 11:04:54 Sheath removed intact; hemostasis achieved with Mechanical Compression to the Right Radial artery. 11:04:57 Procedure ended.(Physican Out) 11:05:08 Fluoroscopy time 06.50 minutes. 11:05:16 Flurop Dose total: 1037 11:05:16 Fluoroscopy dose: 1037 mGy 11:05:23 Contrast amount:Isovue 300 99ml. 11:05:26 Sharps counted by scrub and verified by R.N. 11:05:49 TR band inflated with 10cc of air. 11:05:53 Insertion/operative site no bleeding no hematoma. 11:07:06 Post right radial artery:stable 11:07:16 Post Procedure Pulses reassessed and unchanged 11:07:41 Post-procedure physical assessment completed. ASA score P 2 - A patient with mild systemic disease as per Carlos Chaudhari MD. 11:07:46 Post procedure rhythm: sinus rhythm 11:07:48 Procedure and supply charges have been captured, reviewed, submitted and are correct. 11:08:39 Estimated blood loss: 20 ml 11:08:41 Post procedure instruction explained to patient.Patient verbalizes understanding. 11:08:41 Patient needs reinforcement of post procedure teaching. 11:08:46 Vital chart was stopped 11:08:47 See physician's report for complete and final results. 11:08:50 Report given to Pre/Post Procedure Room. 11:08:53 Patient transfered to Pre/Post Procedure Room with Stretcher. 11:09:02 Procedure ended. 11:09:02 Full Disclosure recording stopped 11:09:05 End room use (Document Last) Intervention Summary Intervention Notes Time ActionType Lesion and Equipment Used Action# Pressure Duration Attributes 10:59:54 Place stent Mid LAD DRAKE RX 2.5 x 1 13 00:10 12 stent ([id number]) 11:03:10 Place stent Undefined1 INTEGRITY RX 1 13 00:10 3.5 x 18 stent ([id number]) Device Usage Item Name Manufacture Quantity Catalog Number Hospital Part Current Minimal Lot# / Charge Number Stock Stock Serial# Code ACIST Syringe Acist 1 54890 542991 143782 007128 20 (33517) Medical Systems Inc Medline Cath Medline 1 [id number] 834086 59019 429239 5 Pack ([id number]) Bag Decanter Microtek 1 2001S 220058 86976 005261 5 (2001S) Medical Inc. DIAGNOSTIC WIRE [place] 1 391577 337965 439624 828572 30 .035 260cm J wire (464101) ACIST Hand Acist 1 05944 399049 529797 925867 5 Control (96680) Medical Systems Inc ACIST Manifold Acist 1 95382 148779 249013 219930 5 (87360) Medical Systems Inc Tegaderm 4 x 4 3M 1 1626W 793411 887167 584901 5 (1626W) MBrace Wrist Advanced 1 140-0250-00 408592 81788 418858 5 Support Vascular ([id number]) Dynamics TR BAND Terumo 1 [id number] 463735 770432 140465 40 Standard ([id number]) SHEATH 6Fr Merit 1 [id number] 347718 444054 402448 5 Prelude Radial Medical ([id number]) DIAGNOSTIC Terumo 1 40-8135 225901 357982 363725 5 Sawyer 110cm 5 Fr catheter (446876) [place] 1 10347G 203863 188526 509099 8 [place] IVUS Catheter (30803A) CHOICE PT Extra [place] 1 [id number] 520801 164840 615520 5 Support 182cm Scientific wire ([id number]) INFLATOR Merit Merit 1 CG0201 443328 737517 329191 15 [facility] (JV5486) GUIDE 6FR XBLAD Cardinal 1 [id number] 364926 614292 141360 10 3.5 catheter Health ([id number]) DRAKE RX 2.5 x Medtronic 1 [id number] 618652 0730473 672774 5 [id number] 12 stent ([id number]) INTEGRITY RX Medtronic 1 [id number] 546238 969974 685151 5 [id number] 3.5 x 18 stent ([id number]) Signature Audit Winston Stage Time Signature Unsigned Intra-Procedure 08/18/2018 Renny Reed 11:09:34 AM RT(R) (CV) Signatures Monitor : Renny Reed RT Signature : Date : Time : [address] [address]
[2018-08-18] MEDS ORDERED: VENTOLIN HFA18 GM INH (08:34)
[2018-08-18] MEDS ORDERED: SYMBICORT 16010.2 GM INH (08:35)
[2018-08-18] MEDS ORDERED: LIPITOR40 MG PO (08:35)
[2018-08-18] MEDS ORDERED: TRICOR48 MG PO (08:36)
[2018-08-18] MEDS ORDERED: VITAMIN D3400 UNI1 PO (08:36)
[2018-08-18] MEDS ORDERED: MAGNESIUM OXID420 MG PO (08:37)
[2018-08-18] MEDS ORDERED: SPIRIVA18 MCG INH (08:38)
[2018-08-18 08:52] VITALS: BP 131/102; Ht 177.8 cm; Wt 84.1 kg
[2018-08-18 09:03] LABS: BASOPHILS 1.1 % (0-2); EOSINOPHILS 5.2 % (0-7); HEMATOCRIT 40.8 % (42.0-54.0); HEMOGLOBIN 14.2 g/dL (13.5-17.5); IMMATURE GRANULOCYTES 0.3 % (0-5); LYMPHOCYTES 24.8 % (15-50); MCH 30.3 pg (26.0-34.0); MCHC 34.8 g/dL (31.0-37.0); MEAN PLATELET VOLUME 10.1 fL (7.4-10.4); MONOCYTES 10.4 % (2-11); NEUTROPHILS 58.2 % (40-80); PLATELET COUNT 177 10x3/uL (130-400); RBC 4.69 10x6/uL (4.20-6.10); RDW 12.6 % (11.5-14.5); WBC 6.1 10x3/uL (4.8-10.8)
[2018-08-18 09:17] LABS: ANION GAP 11.5 mmol/L (8-16); CALCIUM 9.1 mg/dL (8.5-10.1); CARBON DIOXIDE 26.9 mmol/L (21.0-32.0); CREATININE - SERUM 1.1 mg/dL (0.6-1.3); POTASSIUM - SERUM 3.4 mmol/L (3.5-5.1)
[2018-08-18] MEDS ORDERED: PLAVIX75 MG PO (12:57)
== END 2018-08-18 14:59 | disposition home or self-care (01) ==
LOC: D.CATH 07:39
PROVIDERS: Internal Medicine Interventional Cardiology
DX: I25.119 Atherosclerotic heart disease of native coronary artery with unspecified angina pectoris (principal); Z01.812 Encounter for preprocedural laboratory examination
CPT/HCPCS: 92928; 92978; 93458; C9600

== ENCOUNTER 2018-10-14 13:21 | Inpatient (IN) | payer MEDICARE, MEDICAID ==
[~2018-10-14] VITALS: Ht 177.8 cm; Wt 81.6 kg
[~2018-10-14 13:21] MED LIST changes: +LIPITOR40 MG PO; +MAGNESIUM OXID420 MG PO; +PLAVIX75 MG PO; +SPIRIVA18 MCG INH; +SYMBICORT 16010.2 GM INH; +TRICOR48 MG PO; +VENTOLIN HFA18 GM INH; +VITAMIN D3400 UNI1 PO
[2018-10-14] MEDS ORDERED: NORCO 10-325 TA1 TAB PO (13:37)
[2018-10-14] MEDS ORDERED: CYMBALTA30 MG PO (13:37)
[2018-10-14 13:57] LABS: BASOPHILS 0.5 % (0-2); EOSINOPHILS 2.2 % (0-7); HEMATOCRIT 43.6 % (42.0-54.0); IMMATURE GRANULOCYTES 0.6 % (0-5); MCH 31.3 pg (26.0-34.0); MCHC 34.4 g/dL (31.0-37.0); MCV 90.8 fL (80.0-100.0); MONOCYTES 8.3 % (2-11); NEUTROPHILS 75.4 % (40-80); RDW 12.7 % (11.5-14.5); WBC 8.3 10x3/uL (4.8-10.8)
[2018-10-14 14:07] LABS: PLATELET COUNT 232 10x3/uL (130-400)
[2018-10-14 14:12] LABS: ALBUMIN 4.1 g/dL (3.4-5.0); ANION GAP 16.7 mmol/L (8-16); BILIRUBIN - TOTAL 0.7 mg/dL (0.2-1.3); CALCIUM 9.2 mg/dL (8.5-10.1); CARBON DIOXIDE 22.9 mmol/L (21.0-32.0); CREATININE - SERUM 1.2 mg/dL (0.6-1.3); POTASSIUM - SERUM 3.6 mmol/L (3.5-5.1); PROTEIN - SERUM 7.6 g/dL (6.4-8.2)
--- NOTE | 2018-10-14 15:15 | NUR ---
PATIENT AWAKE AND ALERT, WATCHING TELEVISION. RESPIRATIONS EVEN AND UNLABORED. NO NEEDS NOTED. UPDATED ON PLAN OF CARE AND DELAYS IN CARE. WILL CONTINUE TO MONITOR.
[2018-10-14 15:39] VITALS: BP 123/83
--- NOTE | 2018-10-14 16:11 | NUR ---
PATIENT TO CT VIA STRETCHER.
[2018-10-14 16:21] LABS: APPEARANCE CLEAR (CLEAR); BILIRUBIN NEGATIVE (NEGATIVE); COLOR YELLOW (YELLOW); GLUCOSE NEGATIVE (NEGATIVE); KETONE NEGATIVE (NEGATIVE); NITRITE NEGATIVE (NEGATIVE); PROTEIN NEGATIVE (NEGATIVE); SPECIFIC GRAVITY 1.015 (1.005-1.020); UROBILINOGEN NORMAL (NORMAL)
[2018-10-14 18:03] VITALS: BP 130/83
--- NOTE | 2018-10-14 18:50 | NUR ---
PT ARRIVED ON UNIT ACCOMPANIED BY HOSPITAL STAFF. PT VERY TALKATIVE, ALERT AND ORIENTED X4. C/O BLOOD IN STOOL. DENIES PAIN AT THIS TIME. RESPIRATIONS EVEN AND UNLABORED, NO S/S OF DISTRESS NOTED AT THIS TIME. BED LOW AND LOCKED, SR UP X2, CL IN EASY REACH.
--- NOTE | 2018-10-14 19:00 | NUR ---
REPORT RECEIVED AND CARE OF PT ASSUMED. PT ARRIVED ON UNIT AT 1849. MEDICATION RECONCILIATION COMPLETE BY NED CHÁVEZ. PT LYING IN SUPINE POISITION WITH MEAL TRAY AT BEDSIDE. IV IN LEFT FA SALINE LOCKED.
--- NOTE | 2018-10-14 19:40 | NUR ---
IV FLUIDS STARTED AND IV ROCEPHIN STARTED BY NED CHÁVEZ.
[2018-10-14] MEDS ORDERED: PROVENTIL/2.5 MG/3 M INH (19:42)
--- NOTE | 2018-10-14 19:55 | NUR ---
RECEIVED ORDERS FROM DR MAE TO RESTART HOME MEDICATIONS NEEDED TONIGHT. MILITARY EDUCATION COORDINATOR NOTIFIED TO OVERRIDE MEDS.
[2018-10-14 20:27] VITALS: BP 1545/81
--- NOTE | 2018-10-14 21:32 | NUR ---
HS MEDICATIONS GIVEN TO INCLUDE NORCO PO PER REQUEST FOR CHRONIC AND ACUTE PAIN. WILL MONITOR FOR EFFECTIVENESS. DISCUSSED NPO STATUS STARTING AT MIDNIGHT.
[2018-10-14 22:52] VITALS: BP 145/81; BMI 25.8
--- NOTE | 2018-10-14 23:01 | NUR ---
ADMISSION ASSESSMENT AND HISTORY COMPLETE.
--- NOTE | 2018-10-14 23:33 | NUR ---
COLLECTED STOOL FOR ORDERED STUDIES....ENOUGH FOR ALL EXCEPT FOR THE O & P...WILL ATTEMPT TO COLLECT ENOUGH NEXT BM. DELIVERED TO LAB.
--- NOTE | 2018-10-14 23:40 | NUR ---
PT STOOL WAS BLOODY MUCUS WITH NO FECAL MATTER PRESENT.
[2018-10-15 04:16] VITALS: BP 114/60
[2018-10-15 05:54] LABS: BASOPHILS 0.5 % (0-2); EOSINOPHILS 7.8 % (0-7); HEMATOCRIT 35.5 % (42.0-54.0); IMMATURE GRANULOCYTES 0.4 % (0-5); LYMPHOCYTES 27.9 % (15-50); MCH 30.3 pg (26.0-34.0); MCHC 33.8 g/dL (31.0-37.0); MCV 89.6 fL (80.0-100.0); NEUTROPHILS 52.4 % (40-80); RBC 3.96 10x6/uL (4.20-6.10); RDW 12.9 % (11.5-14.5)
[2018-10-15 05:59] LABS: PLATELET COUNT 185 10x3/uL (130-400); WBC 5.7 10x3/uL (4.8-10.8)
[2018-10-15 06:04] LABS: ANION GAP 14.4 mmol/L (8-16); APTT 26.9 SECONDS (22.8-39.4); CALCIUM 8.9 mg/dL (8.5-10.1); CARBON DIOXIDE 24.6 mmol/L (21.0-32.0); CREATININE - SERUM 1.2 mg/dL (0.6-1.3); INR 1.14 (0.85-1.17); PROTIME 14.1 SECONDS (11.6-15.0)
--- NOTE | 2018-10-15 08:00 | NUR ---
PT SITTING UP IN BED THIS AM WATCHING TV, RESPIRATIONS EVEN AND UNLABORED, NO S/S OF DISTRESS NOTED. PT HAS BEEN NPO SINCE MIDNIGHT, WILL CONTINUE TO KEEP HIM NPO UNTIL ORDERED OTHERWISE. PT HAS REPORTED BLOODY, JELLY-LIKE STOOL EVERY BM. DENIES NEEDS AT THIS TIME. BED LOW AND LOCKED, SR UP X2, CL IN EASY REACH. WILL CONTINUE TO MONITOR THROUGHOUT THE DAY.
[2018-10-15 09:31] VITALS: BP 121/75
--- NOTE | 2018-10-15 10:40 | NUR ---
PT'S IV INFILTRATED, IV REMOVED, TIP INTACT. IV RESITED TO RIGHT WRIST, GOOD BLOOD RETURN, PATENT, SWAB CAPS IN USE. X1 STICK. DENIES FURTHER NEEDS AT THIS TIME. CL IN EASY REACH.
[2018-10-15 12:00] VITALS: BP 139/83
[2018-10-15 16:00] VITALS: BP 150/72
--- NOTE | 2018-10-15 16:37 | NUR ---
PT SEEMS TO BE IN HIGH SPIRITS AFTER BEING ALLOWED TO EAT AND DRINK. DENIES NEEDS AT THIS TIME. BED LOW AND LOCKED. SR UP X2, CL IN EASY REACH.
--- NOTE | 2018-10-15 19:00 | NUR ---
REPORT RECEIVED AND CARE OF PT ASSUMED. PT LYING IN LOW MARIN'S POSITION WATCHING TV. IV IN RIGHT WRIST PATENT WITH D5LR INFUISING AT 60 ML / HR. WILL MONITOR FOR NEEDS.
[2018-10-15 21:02] VITALS: BP 138/91
--- NOTE | 2018-10-15 21:36 | NUR ---
HS MEDICATIONS GIVEN. WILL CONTINUE TO MONITOR FOR NEEDS.
[2018-10-16] VITALS: BP 155/68
[2018-10-16 04:00] VITALS: BP 146/52
[2018-10-16 06:48] LABS: HEMATOCRIT 36.4 % (42.0-54.0); HEMOGLOBIN 11.9 g/dL (13.5-17.5); MCH 30.5 pg (26.0-34.0); MCHC 32.7 g/dL (31.0-37.0); WBC 4.5 10x3/uL (4.8-10.8)
[2018-10-16 06:50] LABS: MCV 93.3 fL (80.0-100.0); PLATELET COUNT 69 10x3/uL (130-400)
[2018-10-16 06:55] LABS: ALBUMIN 3.1 g/dL (3.4-5.0); ALKALINE PHOSPHATASE 65 U/L (46-116); BILIRUBIN - TOTAL 0.51 mg/dL (0.2-1.3); CARBON DIOXIDE 25.5 mmol/L (21.0-32.0); CHLORIDE - SERUM 109 mmol/L (98-107); GLUCOSE 108 mg/dL (74-106); SODIUM 144 mmol/L (136-145); eGFR NON AFRICAN AMERICAN 79 mL/min (90-120)
[2018-10-16 06:57] LABS: ALT (SGPT) 30 U/L (10-68); CALC OSMOLALITY 285 mosm/kg (275-300); UREA NITROGEN 7 mg/dL (7-18)
[2018-10-16 06:58] LABS: POTASSIUM - SERUM 4.4 mmol/L (3.5-5.1)
[2018-10-16 07:37] LABS: EOSINOPHILS 4 % (0-7); LYMPHOCYTES 37 % (15-50); MONOCYTES 4 % (2-11); NEUTROPHILS 51 % (40-80); PLATELET ESTIMATE DECREASED
[2018-10-16 09:39] VITALS: BP 148/82
[2018-10-16 13:21] VITALS: BP 154/79
[2018-10-16 14:23] VITALS: Ht 177.8 cm; Wt 81.6 kg
[2018-10-16 17:20] VITALS: BP 186/85
--- NOTE | 2018-10-16 18:40 | NUR ---
PATIENT IN BED WITH IV INTACT. NO COMPLAINTS. CALL LIGHT WITHIN REACH.
[2018-10-16 20:46] VITALS: BP 124/64
--- NOTE | 2018-10-16 20:49 | NUR ---
AWAKE WATCHING TV QUIELTY. NO DISTRESS NOTED. RESP UNLABORED. IV INFUSING TO RIGHT WRIST WITHOUT REDNESS OR EDEMA NOTED. UP AD CLAUDIA IN ROOM. NO COMPLAINTS VOICED. CL IN REACH
[2018-10-17 00:08] VITALS: BP 145/81
[2018-10-17 04:22] VITALS: BP 111/61
--- NOTE | 2018-10-17 05:10 | NUR ---
AWAKE WITH NO COMPLAITNS. NO DISTRESS NOTED. CL IN REACH
[2018-10-17 06:33] LABS: BILIRUBIN - TOTAL 0.36 mg/dL (0.2-1.3); CALCIUM 8.9 mg/dL (8.5-10.1); CARBON DIOXIDE 26.3 mmol/L (21.0-32.0); PROTEIN - SERUM 5.8 g/dL (6.4-8.2)
[2018-10-17 06:34] LABS: ANION GAP 14.3 mmol/L (8-16); CREATININE - SERUM 1.3 mg/dL (0.6-1.3); POTASSIUM - SERUM 3.6 mmol/L (3.5-5.1)
[2018-10-17 06:46] LABS: BASOPHILS 0.9 % (0-2); EOSINOPHILS 13.4 % (0-7); HEMATOCRIT 33.6 % (42.0-54.0); HEMOGLOBIN 11.5 g/dL (13.5-17.5); IMMATURE GRANULOCYTES 0.4 % (0-5); LYMPHOCYTES 31.5 % (15-50); MCH 30.7 pg (26.0-34.0); MCHC 34.2 g/dL (31.0-37.0); MEAN PLATELET VOLUME 9.6 fL (7.4-10.4); MONOCYTES 10.6 % (2-11); NEUTROPHILS 43.2 % (40-80); RBC 3.75 10x6/uL (4.20-6.10); RDW 12.5 % (11.5-14.5); WBC 5.4 10x3/uL (4.8-10.8)
[2018-10-17 06:49] LABS: MCV 89.6 fL (80.0-100.0)
[2018-10-17 06:50] LABS: PLATELET COUNT 173 10x3/uL (130-400)
[2018-10-17 08:40] VITALS: BP 154/85
--- NOTE | 2018-10-17 10:36 | NUR ---
PT ABX NOW PO, PT ASKED TO BE DC FROM IV TO WALK, BED IN LOW POSITION, CL IN REACH, NO S/S OF DISTRESS. CONTINUE WITH PLAN OF CARE
[2018-10-17] MEDS ORDERED: FLAGYL500 MG PO (11:35)
[2018-10-17] MEDS ORDERED: LEVOFLOXACIN500 MG PO (11:36)
[2018-10-17 12:40] VITALS: BP 138/80
--- NOTE | 2018-10-17 13:40 | NUR ---
WENT OVER DISCHARGE INSTRUCTIONS AND FOLLOW UP APPOINTMENTS WITH PT. ALL QUESTIONS ANSWERED. PT DC HOME WITH SPOUSE
--- NOTE | 2018-10-18 16:41 | MORECARE ---
CASE MANAGEMENT DISCHARGE SUMMARY PATIENT: RAJWINDER BROOKE SABAS UNIT: [id number] ADM DATE: 10/14/18 AGE: 68 : 48 SEX: M ROOM/BED: D.2225 AUTHOR: GIA RAMIREZ PHYSICIAN: REFERRING PHYSICIAN: FIDELIA MIGUEL MD DATE OF SERVICE: 10/18/18 Discharge Plan Patient Name: RAJWINDER BROOKE [facility] : 1950 Planned Disposition: Anticipated Discharge Date: Discharge Date: 10/17/2018 Expected LOS: 0 Initial Reviewer: [email or web address] Initial Review Date: 10/18/2018 Generated: 10/18/18 5:40 pm Patient Name: RAJWINDER BROOKE Page [id number] at 1641 All edits/amendments must be made on the electronic document DICTATION DATE: 10/18/18 1640 MAGNETO SPECIALIST: ZIGGY 10/18/18 1640 RPT#: [id number] DC DATE:10/17/18 STATUS: DIS IN [facility] [address] [place] [address] END OF REPORT
== END 2018-10-17 14:33 | disposition home or self-care (01) | DRG 378 ==
LOC: D.ER 13:21 → D.EDHOLD 17:24 → D.MS 17:24
PROVIDERS: Emergency Medicine; Internal Medicine Gastroenterology; ADMIT Emergency Medicine
DX: K92.2 Gastrointestinal hemorrhage, unspecified (principal); A09 Infectious gastroenteritis and colitis, unspecified; K55.9 Vascular disorder of intestine, unspecified; D62 Acute posthemorrhagic anemia; I10 Essential (primary) hypertension; I25.10 Atherosclerotic heart disease of native coronary artery without angina pectoris; J44.9 Chronic obstructive pulmonary disease, unspecified; E78.5 Hyperlipidemia, unspecified; E86.0 Dehydration

== ENCOUNTER 2021-01-12 12:06 | Day surgery (SDC) | payer MEDICARE, MEDICAID ==
[~2021-01-12] VITALS: Ht 177.8 cm; Wt 80.0 kg
[~2021-01-12 12:06] MED LIST changes: +CYMBALTA30 MG PO; +FLAGYL500 MG PO; +LEVOFLOXACIN500 MG PO; +NORCO 10-325 TA1 TAB PO; +PROVENTIL/2.5 MG/3 M INH
[2021-01-12 13:04] LABS: BASOPHILS 0.7 % (0-2); EOSINOPHILS 2.5 % (0-7); HEMATOCRIT 41.3 % (42.0-54.0); HEMOGLOBIN 14.1 g/dL (13.5-17.5); IMMATURE GRANULOCYTES 0.2 % (0-5); LYMPHOCYTE ABS# 1.48 10x3/uL (1.32-3.57); LYMPHOCYTES 24.3 % (15-50); MCH 30.4 pg (26.0-34.0); MCHC 34.1 g/dL (31.0-37.0); MEAN PLATELET VOLUME 9.6 fL (7.4-10.4); MONOCYTES 8.2 % (2-11); NEUTROPHIL ABS# 3.92 10x3/uL (1.78-5.38); NEUTROPHILS 64.1 % (40-80); PLATELET COUNT 181 10x3/uL (130-400); RBC 4.64 10x6/uL (4.20-6.10); RDW 12.3 % (11.5-14.5); WBC 6.1 10x3/uL (4.8-10.8)
[2021-01-12 13:12] LABS: ANION GAP 11.4 mmol/L (8-16); CARBON DIOXIDE 26.4 mmol/L (21.0-32.0); CREATININE - SERUM 1.2 mg/dL (0.6-1.3); POTASSIUM - SERUM 3.8 mmol/L (3.5-5.1)
[2021-01-12 13:54] LABS: APTT 24.9 SECONDS (22.8-39.4); INR 1.19 (0.85-1.17)
[2021-01-12 14:06] VITALS: BP 146/83; Ht 177.8 cm; Wt 80.0 kg
--- NOTE | 2021-01-13 15:15 | OP ---
PATIENT NAME: RAJWINDER BROOKE MEDICAL RECORD: [id number] :48 LOCATION:[facility] ADMISSION DATE: SURGEON: SHARON ALFARO MD DATE OF OPERATION: 01/12/2021 PROCEDURE: Colonoscopy. PREOPERATIVE DIAGNOSES: History of polyps, family history of colon cancer. MEDICATIONS propofol per anesthesia. DESCRIPTION OF PROCEDURE: Colonoscopy was performed. The colonoscope was inserted through the rectum and advanced to the cecum, identified by the ileocecal valve and the appendiceal orifice. The quality of the prep was good. There were 2 small sigmoid polyps. These were removed with cold biopsy forceps. There were few small sigmoid diverticula. There were nonbleeding internal hemorrhoids viewed on retroflexion. The patient tolerated the procedure well. There were no immediate complications. FINAL DIAGNOSES: Two small sigmoid polyps, few sigmoid diverticula, nonbleeding internal hemorrhoids. PLAN: Check histology results. Advance diet. Return to GI office. Repeat colonoscopy in 3 years given family history and personal history of polyps. TRANSINT:[id number] Voice Confirmation ID: [id number] DOCUMENT ID: [id number] SHARON ALFARO MD at 1515 CC: [id number] DICTATION DATE: 01/12/21 1522 RETAIL FIELD REPRESENTATIVE: 01/13/21 0858 [facility] 01/12/21 [id number] [place] [address]
== END 2021-01-12 16:05 | disposition home or self-care (01) ==
LOC: D.OPS 12:06
PROVIDERS: Anesthesiology; ATTEND Internal Medicine Gastroenterology
DX: K63.5 Polyp of colon (principal); K57.30 Diverticulosis of large intestine without perforation or abscess without bleeding; K64.8 Other hemorrhoids; Z86.010 Personal history of colon polyps; Z80.0 Family history of malignant neoplasm of digestive organs; K59.00 Constipation, unspecified; R63.4 Abnormal weight loss; R12 Heartburn